=== PATIENT | female | born 1960 | race Caucasian/White ===

== ENCOUNTER 2023-08-10 13:50 | Emergency (ER) | payer MEDICAID, OTHER ==
[~2023-08-10] VITALS: Ht 157.5 cm; Wt 68.0 kg
[2023-08-10 13:57] VITALS: BP 157/67; PULSE 71; TEMP 98.7; O2SAT 99
[2023-08-10 14:24] LABS: CLARITY URINE CLEAR (CLEAR); COLOR URINE YELLOW (YELLOW); GLUCOSE URINE NEGATIVE (NEGATIVE); KETONES URINE NEGATIVE (NEGATIVE); LEUKOCYTE ESTERASE URINE NEGATIVE (NEGATIVE); NITRITE URINE NEGATIVE (NEGATIVE); OCCULT BLOOD URINE NEGATIVE (NEGATIVE); PROTEIN URINE NEGATIVE (NEGATIVE); SPECIFIC GRAVITY URINE 1.008 (1.005-1.030); UROBILINOGEN URINE 0.2 E.U./dL (0.2-1.0)
[2023-08-10 16:30] VITALS: RESP 17
[2023-08-10] MEDS: KETOROLAC 60MG/2ML VIAL IM ONE (16:30)
[2023-08-10] MEDS: ACETAMINOPHEN 500MG TABLET PO ONE (16:50)
[2023-08-10] MEDS ORDERED: METH-653 MT (19:14)
[2023-08-10] MEDS ORDERED: NAPR-681 MT (19:14)
== END 2023-08-10 21:24 | disposition home or self-care (01) ==
LOC: ER 13:50
DX: M54.50 Low back pain, unspecified (principal); R30.0 Dysuria; E11.9 Type 2 diabetes mellitus without complications; E78.00 Pure hypercholesterolemia, unspecified; I10 Essential (primary) hypertension; Z90.710 Acquired absence of both cervix and uterus; Z98.890 Other specified postprocedural states
CPT/HCPCS: 81003; 81025; 74176; 96372; 99285; J1885; Z7610